=== PATIENT | female | born 2000 | race Hispanic/Latino ===

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

== ENCOUNTER 2024-12-05 09:41 | Emergency (ER) | payer OTHER ==
[~2024-12-05] VITALS: Ht 154.9 cm; Wt 67.6 kg
[2024-12-05 10:01] VITALS: PULSE 89; RESP 18; TEMP 99; O2SAT 100
[2024-12-05] MEDS ORDERED: METOCLOPRAMIDE10 MG PO (10:15)
[2024-12-05] MEDS ORDERED: AZITHROMYCIN500 MG PEG (10:15)
== END 2024-12-05 10:23 | disposition home or self-care (01) ==
LOC: ER 09:45
DX: O26.891 Other specified pregnancy related conditions, first trimester (principal); O98.811 Other maternal infectious and parasitic diseases complicating pregnancy, first trimester; I10 Essential (primary) hypertension
CPT/HCPCS: 99283